=== PATIENT | female | born 1955 | race Caucasian/White ===

== ENCOUNTER 2017-03-30 11:33 | Inpatient (IN) | payer OTHER ==
[~2017-03-30] VITALS: Ht 154.9 cm; Wt 46.0 kg
[2017-03-30] MEDS ORDERED: NS 1,000 ML IV SCH (11:43)
[2017-03-30 12:04] LABS: BASO % 0.2 % (0.0-1.0); EOS # 0.2 K/mm3 (0.0-0.50); LARGE UNSTAINED CELL # 0.1 K/mm3 (0.0-0.4); LARGE UNSTAINED CELL % 0.4 % (0.0-4.0); LYMPH # 0.9 K/mm3 (1.5-4.5); LYMPH % 5.3 % (24.0-44.0); MEAN CORPUSCULAR HEMOGLOBIN 31.4 pg (27.0-33.0); MEAN CORPUSCULAR HGB CONC 33.3 g/dl (32.0-36.5); MEAN CORPUSCULAR VOLUME 94.3 fl (80.0-96.0); MONO # 0.5 K/mm3 (0.0-0.8); MONO % 3.3 % (0.0-5.0); NEUTROPHILS # 14.4 K/mm3 (1.8-7.7); NEUTROPHILS % 89.9 % (36.0-66.0); PLATELET COUNT, AUTOMATED 226 k/mm3 (150-450); RED CELL DISTRIBUTION WIDTH 12.9 % (11.5-14.5)
[2017-03-30 12:18] LABS: ALBUMIN 3.8 GM/DL (3.2-5.2); ALBUMIN/GLOBULIN RATIO 0.93 (1.00-1.93); ALKALINE PHOSPHATASE 62 U/L (45-117); ALT/SGPT 12 U/L (12-78); ANION GAP 10 MEQ/L (8-16); AST/SGOT 10 U/L (15-37); BILIRUBIN,DIRECT 0.2 MG/DL (0.0-0.2); BILIRUBIN,TOTAL 0.9 MG/DL (0.2-1.0); BLOOD UREA NITROGEN 15 MG/DL (7-18); CALCIUM LEVEL 8.8 MG/DL (8.8-10.2); CARBON DIOXIDE LEVEL 24 MEQ/L (21-32); CHLORIDE LEVEL 106 MEQ/L (98-107); CREATININE FOR GFR 0.78 MG/DL (0.55-1.02); GLOMERULAR FILTRATION RATE > 60.0 (>45); GLUCOSE, FASTING 115 MG/DL (80-110); POTASSIUM SERUM 3.4 MEQ/L (3.5-5.1); SODIUM LEVEL 140 MEQ/L (136-145); TOTAL PROTEIN 7.9 GM/DL (6.4-8.2)
[2017-03-30] MEDS ORDERED: ISOVUE-370 76% 100ML VIAL (Q9967) As Ordered ONE (12:28)
[2017-03-30] MEDS ORDERED: SODIUM CHLORIDE 0.9% 1000 ML IV ONE (13:00)
[2017-03-30] MEDS ORDERED: PIPERACILLIN/TAZOBACTAM SOD 3.375 GM in D5W MINI-BAG PLUS 50 ML IV ONE (13:00)
--- NOTE | 2017-03-30 13:21 | REP ---
CT ABDOMEN AND PELVIS WITH CONTRAST: TECHNIQUE: Axial contrast enhanced images from the lung bases to the pubic symphysis using 100 mL Isovue 370 intravenous contrast material with multiplanar reformations. No infiltrate is seen in the visualized lung bases. The liver demonstrates hypodense nodules of varying sizes. Two dominant cysts are seen, one in the right lobe measuring 2.5 cm in diameter and one in the left lobe approximately 2.2 cm in diameter. Other tiny subcentimeter hypodensities do not appear to enhance also compatible with cysts. There is an enhancing nodule in the left lobe superiorly which appears to represent a hemangioma measuring about 8 mm in diameter. The spleen, adrenals, and pancreas as well as the kidneys are unremarkable. There is no hydronephrosis. There is no abdominal aortic aneurysm. I see no definite adenopathy. The appendix appears dilated in the lower anterior pelvis with surrounding streaky inflammatory change consistent with appendicitis. There is mild free fluid in the pelvis. The urinary bladder is mildly distended and grossly unremarkable. I see no other significant finding. There appears to be mild inferior pericardial fluid. IMPRESSION: Findings compatible with appendicitis with mild free fluid in the pelvis. No free air. Signed by Jesus Maravilla MD 03/30/2017 04:47 P
[2017-03-30] MEDS ORDERED: ONDANSETRON 4MG/2ML VIAL (J2405) IV ONE (13:30)
[2017-03-30] MEDS ORDERED: BUPIVACAINE HCL 0.25% 30 ML VIAL As Ordered ONE (14:12)
[2017-03-30] MEDS ORDERED: LR 1,000 ML IV SCH ×2 (15:31→21:45)
[2017-03-30] MEDS ORDERED: MIDAZOLAM INJ 2 MG/2 ML VIAL (J2250) As Ordered ONE (18:47)
[2017-03-30] MEDS ORDERED: fentaNYL 100 MCG/2 ML INJECTION (J3010) As Ordered ONE ×2 (18:47→21:36)
[2017-03-30] MEDS ORDERED: PROPOFOL 200 MG/20 ML VIAL As Ordered ONE (18:48)
[2017-03-30] MEDS ORDERED: LIDOCAINE 2% INJ 100 MG/5 ML SDV (FOR ANES.) As Ordered ONE (18:48)
[2017-03-30] MEDS: PIPERACILLIN/TAZOBACTAM SOD 3.375 GM in D5W MINI-BAG PLUS 50 ML IV SCH (19:00)
[2017-03-30] MEDS ORDERED: dexameTHASONE 4 MG/ML 1ML VIAL (J1100) As Ordered ONE (19:32)
[2017-03-30] MEDS ORDERED: ONDANSETRON 4MG/2ML VIAL (J2405) As Ordered ONE (19:32)
[2017-03-30] MEDS ORDERED: ROCURONIUM BROMIDE 50 MG/5 ML VIAL As Ordered ONE (19:33)
[2017-03-30] MEDS ORDERED: GLYCOPYRROLATE INJ 0.2 MG/ML 2 ML VIAL As Ordered ONE (20:25)
[2017-03-30] MEDS ORDERED: NEOSTIGMINE 1MG/ML 5 ML SYRINGE (J2710) As Ordered ONE (20:25)
[2017-03-30] MEDS ORDERED: KETOROLAC 60 MG/2 ML VIAL (J1885) As Ordered ONE (20:35)
[2017-03-30] MEDS ORDERED: ONDANSETRON 4MG/2ML VIAL (J2405) IV PRN (21:45)
[2017-03-30] MEDS ORDERED: fentaNYL 100 MCG/2 ML INJECTION (J3010) IV PRN (21:45)
[2017-03-30] MEDS ORDERED: MORPHINE 2 MG/ML 1ML SYRINGE IV PRN (22:00)
[2017-03-30 22:15] VITALS: BP 97/52
[2017-03-30 22:45] VITALS: BP 97/53
[2017-03-30 23:15] VITALS: BP 112/61
[2017-03-30] MEDS: LR 1,000 ML IV SCH (23:33)
[2017-03-31] VITALS (8 sets, daily range): BP systolic 98–105; BP diastolic 52–59
[2017-03-31] MEDS: PIPERACILLIN/TAZOBACTAM SOD 3.375 GM in D5W MINI-BAG PLUS 50 ML IV SCH ×4 (00:45→18:24)
[2017-03-31] MEDS: KETOROLAC 30 MG/ML VIAL (J1885) IV PRN ×3 (00:46→13:46)
[2017-03-31] MEDS: LR 1,000 ML IV SCH (06:44)
[2017-03-31 07:12] LABS: BASO % 0.1 % (0.0-1.0); EOS % 0.1 % (0.0-3.0); LARGE UNSTAINED CELL # 0.1 K/mm3 (0.0-0.4); LARGE UNSTAINED CELL % 0.7 % (0.0-4.0); LYMPH # 0.5 K/mm3 (1.5-4.5); LYMPH % 4.6 % (24.0-44.0); MEAN CORPUSCULAR HGB CONC 32.4 g/dl (32.0-36.5); MEAN CORPUSCULAR VOLUME 98.7 fl (80.0-96.0); MONO # 0.3 K/mm3 (0.0-0.8); MONO % 3.2 % (0.0-5.0); NEUTROPHILS # 9.5 K/mm3 (1.8-7.7); NEUTROPHILS % 91.3 % (36.0-66.0); PLATELET COUNT, AUTOMATED 182 k/mm3 (150-450); WHITE BLOOD COUNT 10.4 K/mm3 (4.0-10.0)
[2017-04-01] MEDS: LR 1,000 ML IV SCH ×2 (00:38→17:05)
[2017-04-01] MEDS: PIPERACILLIN/TAZOBACTAM SOD 3.375 GM in D5W MINI-BAG PLUS 50 ML IV SCH ×4 (00:38→18:45)
[2017-04-01] MEDS: KETOROLAC 30 MG/ML VIAL (J1885) IV PRN ×4 (00:57→20:17)
[2017-04-01 02:00] VITALS: BP 111/57
[2017-04-01 05:16] LABS: BASO % 0.4 % (0.0-1.0); EOS % 0.5 % (0.0-3.0); LARGE UNSTAINED CELL % 0.5 % (0.0-4.0); LYMPH # 0.8 K/mm3 (1.5-4.5); LYMPH % 8.4 % (24.0-44.0); MEAN CORPUSCULAR HEMOGLOBIN 31.7 pg (27.0-33.0); MEAN CORPUSCULAR HGB CONC 33.1 g/dl (32.0-36.5); MEAN CORPUSCULAR VOLUME 95.7 fl (80.0-96.0); MONO # 0.2 K/mm3 (0.0-0.8); MONO % 2.2 % (0.0-5.0); NEUTROPHILS # 8.4 K/mm3 (1.8-7.7); NEUTROPHILS % 88.1 % (36.0-66.0); PLATELET COUNT, AUTOMATED 170 k/mm3 (150-450); RED CELL DISTRIBUTION WIDTH 12.8 % (11.5-14.5); WHITE BLOOD COUNT 9.6 K/mm3 (4.0-10.0)
[2017-04-01 05:30] VITALS: BP 109/59
[2017-04-01 05:52] LABS: ALBUMIN 2.2 GM/DL (3.2-5.2); ALBUMIN/GLOBULIN RATIO 0.61 (1.00-1.93); ALKALINE PHOSPHATASE 35 U/L (45-117); ALT/SGPT 8 U/L (12-78); ANION GAP 10 MEQ/L (8-16); AST/SGOT 11 U/L (15-37); BILIRUBIN,TOTAL 0.8 MG/DL (0.2-1.0); BLOOD UREA NITROGEN 22 MG/DL (7-18); CALCIUM LEVEL 7.7 MG/DL (8.8-10.2); CARBON DIOXIDE LEVEL 23 MEQ/L (21-32); CHLORIDE LEVEL 109 MEQ/L (98-107); CREATININE FOR GFR 0.74 MG/DL (0.55-1.02); GLOMERULAR FILTRATION RATE > 60.0 (>45); GLUCOSE, FASTING 78 MG/DL (80-110); POTASSIUM SERUM 3.4 MEQ/L (3.5-5.1); SODIUM LEVEL 142 MEQ/L (136-145); TOTAL PROTEIN 5.8 GM/DL (6.4-8.2)
[2017-04-01 10:00] VITALS: BP 107/57
[2017-04-01 14:00] VITALS: BP 122/66
--- NOTE | 2017-04-01 15:11 | RO ---
DATE OF PROCEDURE: 03/30/2017 PREOPERATIVE DIAGNOSIS: Appendicitis, possibly perforated. POSTOPERATIVE DIAGNOSIS: Perforated gangrenous appendicitis. PROCEDURE PERFORMED: Laparoscopic appendectomy. SURGEON: Dr. Lugo ANESTHESIA: General. INDICATIONS FOR PROCEDURE: Patient is a 61-year-old woman who presented to the emergency department with a roughly 24-hour history of abdominal pain, which became more localized to the right lower quadrant. The patient was found to have right lower quadrant tenderness and a CT scan suggested a dilated, inflamed appendix with some free fluid in the pelvis. The patient was started on antibiotics and is now for a laparoscopic appendectomy. OPERATIVE PROCEDURE: The patient was placed supine on the operating table. She was placed under general endotracheal anesthesia. The patient's abdomen was noted to be moderately distended. 0.25% Marcaine was infiltrated at each of the trocar sites. A short supraumbilical midline incision was made and deepened through the fascia and peritoneum under direct vision. A Jaz cannula was inserted and the abdomen was insufflated with carbon dioxide gas. The laparoscope was placed. Initial examination showed some yellowish fluid lower in the abdomen. There was some clearly inflamed tissue in the right lower quadrant with some inflammation of the peritoneum in this area and a few filmy adhesions and some debris. There was omentum pulled down into the low right lower quadrant. A 5 mm trocar was placed low in the midline and a second 5 mm trocar in the left lower quadrant. Graspers were inserted. The omentum was peeled away from a markedly inflamed appendix. It was obvious that there was some leakage of fecal material from perforations on the side of the appendix. The omentum was placed up into the mid abdomen. The right lower quadrant and pelvis were irrigated with some saline. A few small fragments of what appeared to be stool in the area of the appendix were suctioned and irrigated as thoroughly as possible. There was some exudate noted on a surrounding loop of bowel and this was removed with graspers as thoroughly as possible. Attention was then turned to the appendix. The mesoappendix was grasped and the appendix was elevated. The mesoappendix was divided near the base of the appendix using the cautery with care to ensure hemostasis. The very base of the appendix appeared viable and an acceptable location for division. Once the appendix had been freed, the base of the appendix at its juncture with the cecum was stapled with a linear cutter 45 stapler with a blue load. The appendix was placed in an Endopouch. The appendiceal closure looked good with no bleeding. A thorough irrigation of the abdomen was then performed. Initially, I washed out the right lower quadrant and the pelvis as thoroughly as possible using sterile saline. The patient was then tilted to a reverse Trendelenburg position and the upper quadrants were irrigated and the irrigation allowed to drain into the pelvis where it was all aspirated as thoroughly as possible. The patient was then flattened out to complete the removal of irrigation from the pelvis and lower abdomen. The patient's abdomen was then deflated and the trocars were removed. The appendix was recovered through the Jaz site. This was sent for permanent pathology. The fascia at the Jaz site was closed with interrupted simple sutures of #2-0 Vicryl. The skin incisions were all closed with #5-0 Vicryl and Steri-Strips. Light dressings were applied. The patient tolerated the procedure well without apparent complication. She was awakened in the operating room, extubated and moved to the recovery room in stable condition. PRITI
[2017-04-01 18:00] VITALS: BP 116/68
[2017-04-01 22:00] VITALS: BP 103/59
[2017-04-02] MEDS: PIPERACILLIN/TAZOBACTAM SOD 3.375 GM in D5W MINI-BAG PLUS 50 ML IV SCH ×4 (00:49→18:22)
[2017-04-02] MEDS: ONDANSETRON 4MG/2ML VIAL (J2405) IV PRN (00:57)
[2017-04-02 02:00] VITALS: BP 110/68
[2017-04-02 06:00] VITALS: BP 124/66
[2017-04-02] MEDS: LR 1,000 ML IV SCH ×2 (06:18→12:37)
[2017-04-02 10:00] VITALS: BP 113/61
[2017-04-02] MEDS: KETOROLAC 30 MG/ML VIAL (J1885) IV PRN ×2 (10:58→18:21)
[2017-04-02] MEDS ORDERED: ERTAPENEM SODIUM 1 GM in NS MINI-BAG PLUS 50 ML IV SCH (13:00)
[2017-04-02 14:00] VITALS: BP 107/55
[2017-04-02] MEDS: ERTAPENEM SODIUM 1 GM in NS MINI-BAG PLUS 50 ML IV SCH (14:59)
[2017-04-02 18:00] VITALS: BP 109/53
[2017-04-02 22:00] VITALS: BP 111/58
[2017-04-03] MEDS: PIPERACILLIN/TAZOBACTAM SOD 3.375 GM in D5W MINI-BAG PLUS 50 ML IV SCH ×4 (00:20→18:26)
[2017-04-03] MEDS: LR 1,000 ML IV SCH ×2 (00:21→20:08)
[2017-04-03 02:00] VITALS: BP 116/62
[2017-04-03 05:44] LABS: MEAN CORPUSCULAR HGB CONC 32.5 g/dl (32.0-36.5); MEAN CORPUSCULAR VOLUME 95.3 fl (80.0-96.0); RED CELL DISTRIBUTION WIDTH 12.6 % (11.5-14.5)
[2017-04-03 06:00] VITALS: BP 120/58
--- NOTE | 2017-04-03 07:50 | REPUSA ---
TECHNIQUE: CT of the abdomen and pelvis was performed without contrast utilizing a standard protocol. 2-D sagittal and coronal reformatted images were also performed. HISTORY: POST FEVER/APPY ? ABSCESS COMPARISON: Contrast-enhanced exam dated 03/30/2017. FINDINGS: The lower thorax is grossly unremarkable as seen. There is some trace pleural fluid in the lung bases . Evaluation of the abdomen and pelvis demonstrates a nasogastric tube coursing through the esophagus a nd nicely through the stomach and into the first portion of the duodenum. There is a small cyst in the lateral periphery of the lateral segment of the left lobe of the liver m easuring 2.3 x 1.5 cm and another small cyst measuring about 2.5 x 2.2 cm is noted in the middle of t he right lobe of the liver. There is vicarious excretion of contrast noted in the gallbladder. Incidental finding. The patient is status post appendectomy. There is no abscess or abnormal fluid collection. There is a mild diffuse small bowel ileus. The bowel loops and mesentery and the internal organs and this exam is otherwise unremarkable within the limits of a noncontrast exam. IMPRESSION: 1. The patient is status post appendectomy and this exam is grossly unremarkable within the limits of a noncontrast exam. 2. There is a mild diffuse small bowel ileus. 3. There is trace pleural fluid in the lung bases and a nasogastric tube is in good position and vica rious excretion of contrast is noted in the gallbladder. Follow up with an exam with intravenous and oral contrast is suggested if clinically necessary. Thank you for this referral and allowing us to care for your patient.
[2017-04-03] MEDS: KETOROLAC 30 MG/ML VIAL (J1885) IV PRN (08:58)
[2017-04-03] MEDS ORDERED: CHLORASEPTIC SPRAY MT PRN (11:00)
[2017-04-03] MEDS ORDERED: CEPACOL LOZENGE PO PRN (11:00)
[2017-04-03 14:00] VITALS: BP 128/62
[2017-04-03] MEDS: ERTAPENEM SODIUM 1 GM in NS MINI-BAG PLUS 50 ML IV SCH (14:30)
[2017-04-03 18:00] VITALS: BP 128/64
[2017-04-03 22:00] VITALS: BP 128/60
[2017-04-04] MEDS: PIPERACILLIN/TAZOBACTAM SOD 3.375 GM in D5W MINI-BAG PLUS 50 ML IV SCH ×2 (00:11→06:14)
[2017-04-04] MEDS: KETOROLAC 30 MG/ML VIAL (J1885) IV PRN ×3 (01:44→18:17)
[2017-04-04 02:00] VITALS: BP 102/56
[2017-04-04] MEDS: ONDANSETRON 4MG/2ML VIAL (J2405) IV PRN (02:11)
[2017-04-04 05:36] VITALS: BP 127/65
[2017-04-04] MEDS: D5W/LR 1,000 ML IV SCH (09:07)
[2017-04-04 09:41] LABS: BASO # 0.1 K/mm3 (0.0-0.2); BASO % 1.1 % (0.0-1.0); EOS # 0.2 K/mm3 (0.0-0.50); EOS % 2.9 % (0.0-3.0); LARGE UNSTAINED CELL # 0.1 K/mm3 (0.0-0.4); LARGE UNSTAINED CELL % 1.6 % (0.0-4.0); LYMPH # 0.8 K/mm3 (1.5-4.5); LYMPH % 10.4 % (24.0-44.0); MEAN CORPUSCULAR HEMOGLOBIN 31.4 pg (27.0-33.0); MEAN CORPUSCULAR HGB CONC 33.3 g/dl (32.0-36.5); MEAN CORPUSCULAR VOLUME 94.2 fl (80.0-96.0); MONO # 0.4 K/mm3 (0.0-0.8); MONO % 5.2 % (0.0-5.0); NEUTROPHILS # 5.5 K/mm3 (1.8-7.7); NEUTROPHILS % 78.8 % (36.0-66.0); PLATELET COUNT, AUTOMATED 285 k/mm3 (150-450); RED CELL DISTRIBUTION WIDTH 12.7 % (11.5-14.5)
[2017-04-04 10:00] VITALS: BP 145/60
[2017-04-04 10:13] LABS: ANION GAP 9 MEQ/L (8-16); BLOOD UREA NITROGEN 26 MG/DL (7-18); CALCIUM LEVEL 7.7 MG/DL (8.8-10.2); CARBON DIOXIDE LEVEL 29 MEQ/L (21-32); CHLORIDE LEVEL 108 MEQ/L (98-107); CREATININE FOR GFR 0.64 MG/DL (0.55-1.02); GLOMERULAR FILTRATION RATE > 60.0 (>45); GLUCOSE, FASTING 79 MG/DL (80-110); POTASSIUM SERUM 3.5 MEQ/L (3.5-5.1); SODIUM LEVEL 146 MEQ/L (136-145)
[2017-04-04] MEDS: LR 1,000 ML IV SCH (10:38)
[2017-04-04 14:00] VITALS: BP 131/62
[2017-04-04] MEDS: ERTAPENEM SODIUM 1 GM in NS MINI-BAG PLUS 50 ML IV SCH (15:26)
[2017-04-04 18:00] VITALS: BP 136/76
[2017-04-04 22:00] VITALS: BP 134/70
[2017-04-05] MEDS: D5W/LR 1,000 ML IV SCH ×2 (00:01→14:37)
[2017-04-05 06:00] VITALS: BP 112/55
[2017-04-05 10:00] VITALS: BP 143/71
[2017-04-05 14:00] VITALS: BP 133/67
[2017-04-05] MEDS: ERTAPENEM SODIUM 1 GM in NS MINI-BAG PLUS 50 ML IV SCH (14:36)
--- NOTE | 2017-04-05 15:49 | REP ---
KUB: Single view. History: Evaluate gas pattern. Comparison is made with CT study from April 03, 2017. Findings: A nasogastric tube is seen in the body of the stomach. The bowel gas pattern is much improved. There are one or two loops of air-filled but nondilated small bowel in the central abdomen. Air is seen in the proximal and distal colon. Impression: Bowel gas pattern much improved. NG tube in the mid stomach. Signed by Pj Izquierdo MD 04/05/2017 04:40 P
[2017-04-05 17:55] VITALS: BP 122/68
[2017-04-05] MEDS: ACETAMINOPHEN TAB 650MG DOSE (2X325MG) PO PRN (20:00)
[2017-04-05 22:00] VITALS: BP 120/68
[2017-04-06] VITALS (7 sets, daily range): BP systolic 107–145; BP diastolic 58–67
[2017-04-06] MEDS: D5W/LR 1,000 ML IV SCH (04:55)
[2017-04-06] MEDS ORDERED: ISOVUE-370 76% 100ML VIAL (Q9967) As Ordered ONE (08:51)
[2017-04-06 10:11] LABS: BASO % 0.3 % (0.0-1.0); EOS # 0.3 K/mm3 (0.0-0.50); EOS % 4.1 % (0.0-3.0); LARGE UNSTAINED CELL # 0.1 K/mm3 (0.0-0.4); LARGE UNSTAINED CELL % 1.1 % (0.0-4.0); LYMPH # 1.6 K/mm3 (1.5-4.5); LYMPH % 20.1 % (24.0-44.0); MEAN CORPUSCULAR VOLUME 96.9 fl (80.0-96.0); MONO # 0.3 K/mm3 (0.0-0.8); NEUTROPHILS # 5.5 K/mm3 (1.8-7.7); NEUTROPHILS % 70.3 % (36.0-66.0); PLATELET COUNT, AUTOMATED 371 k/mm3 (150-450); RED CELL DISTRIBUTION WIDTH 12.9 % (11.5-14.5); WHITE BLOOD COUNT 7.8 K/mm3 (4.0-10.0)
[2017-04-06 10:22] LABS: ANION GAP 6 MEQ/L (8-16); BLOOD UREA NITROGEN 9 MG/DL (7-18); CALCIUM LEVEL 7.8 MG/DL (8.8-10.2); CARBON DIOXIDE LEVEL 31 MEQ/L (21-32); CHLORIDE LEVEL 104 MEQ/L (98-107); CREATININE FOR GFR 0.54 MG/DL (0.55-1.02); GLOMERULAR FILTRATION RATE > 60.0 (>45); GLUCOSE, FASTING 104 MG/DL (80-110); POTASSIUM SERUM 3.1 MEQ/L (3.5-5.1); SODIUM LEVEL 141 MEQ/L (136-145)
--- NOTE | 2017-04-06 12:05 | REP ---
CT abdomen and pelvis with IV but without oral contrast: History: Perforated gangrenous appendicitis. Status post laparoscopic appendectomy. Comparison study April 03, 2017. March 30, 2017 CT study is also reviewed. CT contrast dose: 100 ml of Isovue 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 Mild ileus pattern again seen. The lung bases are essentially clear. There is a small quantity of pleural fluid bilaterally again noted. Hepatic cysts are again seen as on the preoperative study. The gallbladder is partially collapsed. There is minimal ascites in the upper abdomen about the liver and in the pericolic gutters bilaterally. There is ascitic fluid in the cul-de-sac in the pelvis. This is increased when compared with the most recent prior study of April 03, 2017. Fluid collection in the cul-de-sac has a partially enhancing wall. The dimensions of the fluid collection are 8.9 x 4.7 x 2.8 cm. There is some interloop ascites in the lower abdomen above the bladder as well. There are clips medial to the cecum. There is no evidence of free intraperitoneal air. No abdominal wall defect is observed. Pancreas, spleen, kidneys and liver are intact and otherwise unremarkable. Impression: Persistent although improved ileus pattern in the bowel gas. Mild ascites. Cul-de-sac fluid collection has partially enhancing wall which could reflect early abscess formation. Signed by Pj Izquierdo MD 04/06/2017 04:33 P
[2017-04-06] MEDS ORDERED: FAT EMULSION IV 20% 500 ML IV SCH (18:00)
[2017-04-06] MEDS ORDERED: MULTIVITAMIN -ADULT INJECTION 10 ML, CR/CU/SE/MN/ZN INJ 1 ML in AMINO AC/ELECTROLYTE/DE... IV SCH (18:00)
[2017-04-06] MEDS: ERTAPENEM SODIUM 1 GM in NS MINI-BAG PLUS 50 ML IV SCH (18:00)
[2017-04-06] MEDS: ENOXAPARIN 40 MG/0.4 ML SYRINGE (J1650) SC SCH (18:52)
[2017-04-07] MEDS: ACETAMINOPHEN TAB 650MG DOSE (2X325MG) PO PRN ×4 (00:15→22:25)
[2017-04-07 02:00] VITALS: BP 116/62
[2017-04-07 05:24] VITALS: BP 107/55
[2017-04-07] MEDS: SODIUM CHLORIDE 0.9% INJ 10 ML SYR IV SCH ×2 (06:08→16:43)
[2017-04-07 10:57] LABS: ALBUMIN 2.3 GM/DL (3.2-5.2); ALBUMIN/GLOBULIN RATIO 0.72 (1.00-1.93); ALKALINE PHOSPHATASE 41 U/L (45-117); ALT/SGPT 17 U/L (12-78); ANION GAP 7 MEQ/L (8-16); AST/SGOT 22 U/L (15-37); BILIRUBIN,TOTAL 0.2 MG/DL (0.2-1.0); BLOOD UREA NITROGEN 11 MG/DL (7-18); CALCIUM LEVEL 7.8 MG/DL (8.8-10.2); CARBON DIOXIDE LEVEL 31 MEQ/L (21-32); CHLORIDE LEVEL 105 MEQ/L (98-107); CREATININE FOR GFR 0.49 MG/DL (0.55-1.02); GLOMERULAR FILTRATION RATE > 60.0 (>45); GLUCOSE, FASTING 104 MG/DL (80-110); POTASSIUM SERUM 3.5 MEQ/L (3.5-5.1); SODIUM LEVEL 143 MEQ/L (136-145); TOTAL PROTEIN 5.5 GM/DL (6.4-8.2)
[2017-04-07] MEDS ORDERED: LIDOCAINE 1% MDV 20ML VIAL As Ordered ONE (12:48)
[2017-04-07 14:00] VITALS: BP 113/62
[2017-04-07] MEDS: SODIUM CHLORIDE 0.9% INJ 10 ML SYR IV PRN (15:53)
[2017-04-07] MEDS: ERTAPENEM SODIUM 1 GM in NS MINI-BAG PLUS 50 ML IV SCH (15:54)
--- NOTE | 2017-04-07 17:49 | REP ---
CT GUIDED ABSCESS DRAIN: The procedure was performed under the direct supervision of Dr. Maravilla. The patient has a history of a cul-de-sac fluid collection seen on a previous CAT scan dated 04/06/2017. The risks and benefits of the procedure were explained to the patient and informed consent was obtained. The pelvic fluid collection was localized using CT guidance. The skin was prepped and draped in a sterile fashion. 1% lidocaine was used as a local anesthetic. Using CT guidance an 8-[place] APDL catheter was inserted using trocar technique. 50 mL of clear yellow fluid was withdrawn and sent to the lab. The catheter was affixed to the skin and a sterile dressing was applied. The catheter was connected to a gravity drainage bag. The patient tolerated the procedure well and there were no immediate complications. Reviewed by JULES Olivares 04/08/2017 04:55 PEdited and Signed by Jesus Maravilla MD 04/08/2017 07:53 P
[2017-04-07 18:00] VITALS: BP 106/56
[2017-04-07] MEDS ORDERED: FAT EMULSION IV 20% 500 ML IV SCH (18:00)
[2017-04-07] MEDS ORDERED: AMINO AC/ELECTROLYTE/DEX/CALC 2,000 ML IV SCH (18:00)
[2017-04-07] MEDS: ENOXAPARIN 40 MG/0.4 ML SYRINGE (J1650) SC SCH (18:45)
[2017-04-07] MEDS: HumaLOG INSULIN (NovoLOG) PER UNIT SC SCH ×2 (18:46→23:49)
[2017-04-07 22:00] VITALS: BP 107/58
[2017-04-08 02:00] VITALS: BP 101/54
[2017-04-08] MEDS: ACETAMINOPHEN TAB 650MG DOSE (2X325MG) PO PRN ×4 (04:20→18:12)
[2017-04-08] MEDS: SODIUM CHLORIDE 0.9% INJ 10 ML SYR IV SCH ×3 (05:08→22:00)
[2017-04-08 05:38] LABS: BASO % 0.3 % (0.0-1.0); EOS # 0.4 K/mm3 (0.0-0.50); EOS % 5.5 % (0.0-3.0); LARGE UNSTAINED CELL # 0.1 K/mm3 (0.0-0.4); LARGE UNSTAINED CELL % 1.4 % (0.0-4.0); LYMPH # 1.8 K/mm3 (1.5-4.5); LYMPH % 20.7 % (24.0-44.0); MEAN CORPUSCULAR HEMOGLOBIN 31.1 pg (27.0-33.0); MEAN CORPUSCULAR HGB CONC 33.1 g/dl (32.0-36.5); MONO # 0.3 K/mm3 (0.0-0.8); MONO % 3.8 % (0.0-5.0); NEUTROPHILS # 5.5 K/mm3 (1.8-7.7); NEUTROPHILS % 68.4 % (36.0-66.0); PLATELET COUNT, AUTOMATED 371 k/mm3 (150-450)
[2017-04-08 05:46] LABS: ANION GAP 5 MEQ/L (8-16); BLOOD UREA NITROGEN 12 MG/DL (7-18); CALCIUM LEVEL 7.8 MG/DL (8.8-10.2); CARBON DIOXIDE LEVEL 31 MEQ/L (21-32); CHLORIDE LEVEL 107 MEQ/L (98-107); CREATININE FOR GFR 0.48 MG/DL (0.55-1.02); GLOMERULAR FILTRATION RATE > 60.0 (>45); GLUCOSE, FASTING 92 MG/DL (80-110); POTASSIUM SERUM 3.2 MEQ/L (3.5-5.1); SODIUM LEVEL 143 MEQ/L (136-145)
[2017-04-08 06:00] VITALS: BP 100/60
[2017-04-08] MEDS: HumaLOG INSULIN (NovoLOG) PER UNIT SC SCH ×3 (06:00→17:39)
[2017-04-08 10:00] VITALS: BP 122/64
[2017-04-08 14:00] VITALS: BP 102/58
[2017-04-08] MEDS: KCL 10MEQ IN 100ML SWI (KRUN) 10 MEQ in APPROPRIATE DILUENT 1 EA IV SCH ×8 (14:27→20:45)
[2017-04-08] MEDS: ENOXAPARIN 40 MG/0.4 ML SYRINGE (J1650) SC SCH (17:19)
[2017-04-08] MEDS: ERTAPENEM SODIUM 1 GM in NS MINI-BAG PLUS 50 ML IV SCH (17:19)
[2017-04-08 18:00] VITALS: BP 102/64
[2017-04-08] MEDS ORDERED: AMINO AC/ELECTROLYTE/DEX/CALC 2,000 ML IV SCH (18:00)
[2017-04-08] MEDS ORDERED: FAT EMULSION IV 20% 500 ML IV SCH (18:00)
--- NOTE | 2017-04-08 20:01 | REP ---
Procedure: PICC line insertion with Chemo-Ritilene The procedure was performed under the direct supervision of Dr. Maravilla. The risks and benefits of the procedure were explained to the patient and informed consent was obtained. The right basilic vein vein was localized using ultrasound guidance. The skin was prepped and draped in a sterile fashion. 2% lidocaine was used as a local anesthetic. Using ultrasound guidance the basilic vein was cannulated and a 0.018 guidewire was inserted and advanced to the SVC using fluoroscopic guidance. The needle was removed and a 5.5 [place] dilator and peel-away sheath was inserted over the guide wire. A 5.5 [place] dual lumen catheter was cut to length of 38 cm. The dilator was removed and the catheter was inserted over the guide wire with the tip ending in the SVC. The peel-away sheath was removed and the catheter was flushed with heparinized saline as per Hospital protocol. The catheter was affixed to the skin and a sterile dressing was applied. The the patient tolerated the procedure well and there were no immediate complications. 0.2 minutes of fluoro time was utilized for this procedure. Reviewed by JULES Olivares 04/07/2017 04:49 PSigned by Jesus Maravilla MD 04/08/2017 07:52 P
[2017-04-08 20:55] VITALS: BP 110/53
[2017-04-09 02:00] VITALS: BP 109/59
[2017-04-09 06:00] VITALS: BP 102/54
[2017-04-09] MEDS: HumaLOG INSULIN (NovoLOG) PER UNIT SC SCH ×4 (06:12→18:58)
[2017-04-09] MEDS: KETOROLAC 30 MG/ML VIAL (J1885) IV PRN ×2 (06:14→17:34)
[2017-04-09] MEDS: SODIUM CHLORIDE 0.9% INJ 10 ML SYR IV PRN (06:15)
[2017-04-09 10:47] LABS: ANION GAP 7 MEQ/L (8-16); BLOOD UREA NITROGEN 14 MG/DL (7-18); CARBON DIOXIDE LEVEL 28 MEQ/L (21-32); CHLORIDE LEVEL 108 MEQ/L (98-107); CREATININE FOR GFR 0.56 MG/DL (0.55-1.02); GLOMERULAR FILTRATION RATE > 60.0 (>45); GLUCOSE, FASTING 100 MG/DL (80-110); POTASSIUM SERUM 4.2 MEQ/L (3.5-5.1); SODIUM LEVEL 143 MEQ/L (136-145)
--- NOTE | 2017-04-09 12:54 | IPNPDOC ---
Subjective General Date/Time Seen The patient was seen on 04/09/17 at 12:47. Subject Chief Complaint/History The patient is a 61-year-old female admitted with a reason for visit of Appendicitis. prolonged ileus Reports some cramping overnight. Minimal, occasional flatus, small loose stools intermittently. Denies nausea. Shes on clear but not taking much because shes afraid she will need the ngt placed back. Current Medications Current Medications Current Medications Acetaminophen (Tylenol Tab) 650 mg Q4HP PRN PO MILD PAIN or TEMP > 100.5 Last administered on 04/08/17 18:12; Start 03/30/17 at 22:00; Stop 04/29/17 at 21:59 Amino Ac/Electrol/ Dextrose/Calcium 2,000 ml @ 60 mls/hr 1T@18 IV Last administered on 04/07/17 18:45; Start 04/07/17 at 18:00; Stop 04/08/17 at 17:59 ; Status DC Amino Ac/Electrol/ Dextrose/Calcium 2,000 ml @ 60 mls/hr 1T@18 IV Last administered on 04/08/17 17:20; Start 04/08/17 at 18:00; Stop 04/09/17 at 17:59 Amino Ac/Electrol/ Dextrose/Calcium 2,000 ml @ 60 mls/hr 1T@18 IV ; Start 04/09 at 18:00; Stop 04/10/17 at 17:59 Cetylpyridinium Chloride (Cepacol) 1 tree Q2HP PRN PO COUGH; Start 04/03/17 at 11 :00; Stop 05/03/17 at 10:59 Dextrose/Lactated Ringer's 1,000 ml @ 65 mls/hr [id number] IV Last administered on 04/06/17 04:55; Start 04/04/17 at 09:00; Stop 04/06/17 at 18:15; Status DC Enoxaparin Sodium (Lovenox) 40 mg DAILY@1800 SC Last administered on 04/08/17 17:19; Start 04/06/17 at 18:00; Stop 04/11/17 at 17:59 Ertapenem 1 gm/ Sodium Chloride 50 ml @ 100 mls/hr Q24H IV ; Start 04/02/17 at 13:00; Stop 04/02/17 at 13:55; Status DC Ertapenem 1 gm/ Sodium Chloride 50 ml @ 100 mls/hr Q24H IV Last administered on 04/08/17 17:19; Start 04/02/17 at 15:00; Stop 04/15/17 at 14:59 Fat Emulsion Intravenous 500 ml @ 20 mls/hr 1T@18 IV Last administered on 04/06 18:30; Start 04/06/17 at 18:00; Stop 04/07/17 at 17:59; Status DC Fat Emulsion Intravenous 500 ml @ 20 mls/hr 1T@18 IV Last administered on 04/07 18:44; Start 04/07/17 at 18:00; Stop 04/08/17 at 17:59; Status DC Fat Emulsion Intravenous 500 ml @ 20 mls/hr 1T@18 IV Last administered on 04/08 17:20; Start 04/08/17 at 18:00; Stop 04/09/17 at 17:59 Fat Emulsion Intravenous 500 ml @ 20 mls/hr 1T@18 IV ; Start 04/09/17 at 18:00 ; Stop 04/10/17 at 17:59 Fentanyl Citrate (Sublimaze) 25 mcg Q5MP PRN IV MODERATE PAIN (PS 4-7) Last administered on 03/30/17 21:40; Start 03/30/17 at 21:45; Stop 03/30/17 at 22:45; Status DC Heparin Sodium (Heparin (Flush)) 200 units ASDIRECTED PRN IV SEE LABEL COMMENTS Last administered on 04/09/17 06:14; Start 04/06/17 at 18:15; Stop 05/06/17 at 18:14 Heparin Sodium (Heparin (Flush)) 200 units PICC IV Last administered on 22:00; Start 04/07/17 at 06:00; Stop 05/07/17 at 05:59 Home Med (Med Rec Complete!) ASDIRECTED XX ; Start 03/30/17 at 13:30; Stop at 13:30; Status DC Insulin Human Lispro (HumaLOG INSULIN) See Protocol Table Q6H SC Last administered on 04/07/17 18:46; Start 04/07/17 at 18:00; Stop 04/08/17 at 14:00 ; Status DC Insulin Human Lispro (HumaLOG INSULIN) See Protocol Table Q6H SC Last administered on 04/09/17 06:12; Start 04/08/17 at 18:00; Stop 04/09/17 at 14:00 Insulin Human Lispro (HumaLOG INSULIN) See Protocol Table Q6H SC ; Start at 18:00; Stop 04/10/17 at 12:01 Ketorolac Tromethamine (ToRADol) 15 mg Q6H PRN IV PAIN Last administered on 06:14; Start 04/05/17 at 07:45; Stop 04/10/17 at 07:44 Ketorolac Tromethamine (ToRADol) 15 mg Q6HP PRN IV MODERATE PAIN (PS 5-7) Last administered on 04/04/17 18:17; Start 03/30/17 at 22:00; Stop 04/04/17 at 21:59; Status DC Lactated Ringer's 1,000 ml @ 80 mls/hr [id number] IV Last administered on 20:08; Start 03/30/17 at 22:00; Stop 04/04/17 at 09:00; Status DC Lactated Ringer's 1,000 ml @ 100 mls/hr Q10H IV ; Start 03/30/17 at 21:45; Stop 03/30/17 at 22:45; Status DC Lactated Ringer's 1,000 ml @ 125 mls/hr Q8H IV Last administered on 03/30/17 16:29; Start 03/30/17 at 15:31; Stop 03/30/17 at 21:48; Status DC Morphine Sulfate (Morphine Sulfate Inj) 2 mg Q2HP PRN IV MODERATE/SEVERE PAIN ( PS 5-10); Start 03/30/17 at 22:00; Stop 04/06/17 at 08:20; Status DC Multivitamins 10 ml/Chromium/ Copper/Manganese/ Seleni/Zn 1 ml/ Amino Ac/ Electrol/ Dextrose/Calcium 2,011 ml @ 60 mls/hr 1T@18 IV Last administered on 04/06/17 18:30; Start 04/06/17 at 18:00; Stop 04/07/17 at 17:59; Status DC Ondansetron HCl (ZOFRAN INJection) 4 mg Q4HP PRN IV NAUSEA OR VOMITING; Start 03/30/17 at 21:45; Stop 03/30/17 at 22:45; Status DC Ondansetron HCl (ZOFRAN INJection) 4 mg Q6HP PRN IV NAUSEA OR VOMITING Last administered on 04/04/17 02:11; Start 03/30/17 at 22:00; Stop 04/29/17 at 21:59 Phenol (Chloraseptic (Cepacol)) 1 spray Q2HP PRN MT SORE THROAT Last administered on 04/03/17 18:38; Start 04/03/17 at 11:00; Stop 05/03/17 at 10:59 Piperacillin Sod/ Tazobactam Sod 3.375 gm/Dextrose 50 ml @ 50 mls/hr Q6H IV Last administered on 04/04/17 06:14; Start 03/30/17 at 19:00; Stop 04/04/17 at 09: 00; Status DC Potassium Chloride 10 meq/ IV Miscellaneous Supplies 100 ml @ 100 mls/hr Q2H IV Last administered on 04/08/17 20:45; Start 04/08/17 at 14:00; Stop at 20:59; Status DC Sodium Chloride 1,000 ml @ 100 mls/hr Q10H IV Last administered on 03/30/17 11 :43; Start 03/30/17 at 11:43; Stop 03/30/17 at 15:41; Status DC Sodium Chloride (Saline Lock Flush) 10 ML PICC IV Last administered on 22:00; Start 04/07/17 at 06:00; Stop 05/07/17 at 05:59 Sodium Chloride (Saline Lock Flush) 10ML ASDIRECTED PRN IV SEE LABEL COMMENTS Last administered on 04/09/17 06:15; Start 04/06/17 at 18:15; Stop 05/06/17 at 18:14 Allergies Coded Allergies: No Known Drug Allergy (Unverified Allergy, Unknown, 02/26/13) Objective Physical Examination Examination GENERAL APPEARANCE:[Patient seen, laying in bed, awake, alert, and oriented. Comfortable, in no acute distress]. SKIN: [Warm and moist]. HEENT: [Normocephalic, atraumatic. [place] palpebral conjunctiva, anicteric sclerae. Lips and mucosa appear moist]. NECK: [Supple, no thyromegaly. No obvious jugular venous distention]. LUNGS: [Clear to auscultation bilaterally. No wheezing appreciated]. HEART: [No chest wall abnormalities. Regular rate and rhythm with no murmurs appreciated]. ABDOMEN: Abdomen is mild round, soft, still distended, tympanitic to percussion. Mild rlq tenderness on palpation. no rebound. left sided drain - light pink serosanguenous fluid, minimal]. EXTREMITIES: [Extremities have no deformities. No edema identified]. Vital Signs Vital Signs Date Time Temp Pulse Resp B/P (MAP) Pulse Ox O2 Delivery O2 Flow Rate FiO2 04/09/17 10:00 Room Air 04/09/17 06:00 98.9 77 18 102/54 (70) 98 I&Os I&O- Last 24 Hours up to 6 AM 04/09/17 06:00 Intake Total 2510 ml Output Total 3160 ml Balance -650 ml Laboratory Data Labs 24H Laboratory Tests 2 04/08/17 17:32: Bedside Glucose (Misc Panel) 101 04/08/17 23:58: Bedside Glucose (Misc Panel) 95 04/09/17 06:04: Bedside Glucose (Misc Panel) 102 04/09/17 10:20: Anion Gap 7L, Glomerular Filtration Rate > 60.0, Blood Urea Nitrogen 14, Creatinine 0.56, Sodium Level 143, Potassium Level 4.2#, Chloride Level 108H, Carbon Dioxide Level 28, Calcium Level 8.0L CBC/BMP Laboratory Tests 04/09/17 10:20 Calcium Level 8.0 L Microbiology Microbiology 04/07/17 Gram Stain - Final, Complete 04/07/17 Abscess Culture - Final, Complete 04/07/17 Anaerobic Culture - Final, Complete Impression Acute Appendicitis Post op ileus Encouraged patient to try more liquids orally. I think she is slowly improving. If she tolerates more food or shows more bowel function, will advance D/C drain. final microbiology shows sterile collection, not much draining D/C antibiotics Plan / VTE VTE Prophylaxis Ordered?: Yes SWETHA TORRES MD April 09, 2017 12:54
[2017-04-09 14:00] VITALS: BP 122/53
[2017-04-09] MEDS: SODIUM CHLORIDE 0.9% INJ 10 ML SYR IV SCH (17:34)
[2017-04-09] MEDS: ENOXAPARIN 40 MG/0.4 ML SYRINGE (J1650) SC SCH (17:35)
[2017-04-09 18:00] VITALS: BP 131/73
[2017-04-09] MEDS ORDERED: FAT EMULSION IV 20% 500 ML IV SCH (18:00)
[2017-04-09] MEDS ORDERED: AMINO AC/ELECTROLYTE/DEX/CALC 2,000 ML IV SCH (18:00)
[2017-04-09 22:00] VITALS: BP 118/57
[2017-04-10] MEDS: KETOROLAC 30 MG/ML VIAL (J1885) IV PRN (02:28)
[2017-04-10] MEDS: SODIUM CHLORIDE 0.9% INJ 10 ML SYR IV SCH ×2 (02:29→17:47)
[2017-04-10 06:00] VITALS: BP 98/58
[2017-04-10] MEDS: HumaLOG INSULIN (NovoLOG) PER UNIT SC SCH ×5 (06:00→23:56)
[2017-04-10 06:15] VITALS: BP 102/52
[2017-04-10] MEDS: ACETAMINOPHEN TAB 650MG DOSE (2X325MG) PO PRN ×2 (08:37→20:43)
[2017-04-10 10:00] VITALS: BP 113/55
[2017-04-10 14:00] VITALS: BP 100/49
[2017-04-10] MEDS: ENOXAPARIN 40 MG/0.4 ML SYRINGE (J1650) SC SCH (17:46)
[2017-04-10 18:00] VITALS: BP 98/52
[2017-04-10] MEDS ORDERED: AMINO AC/ELECTROLYTE/DEX/CALC 2,000 ML IV SCH (18:00)
[2017-04-10] MEDS ORDERED: FAT EMULSION IV 20% 500 ML IV SCH (18:00)
[2017-04-10 22:00] VITALS: BP 109/55
[2017-04-11 02:00] VITALS: BP 97/54
[2017-04-11] MEDS: SODIUM CHLORIDE 0.9% INJ 10 ML SYR IV SCH ×2 (05:15→17:41)
[2017-04-11 05:22] VITALS: BP 100/57
[2017-04-11] MEDS: HumaLOG INSULIN (NovoLOG) PER UNIT SC SCH ×2 (05:30→11:59)
[2017-04-11] MEDS: ACETAMINOPHEN TAB 650MG DOSE (2X325MG) PO PRN ×3 (05:49→22:20)
[2017-04-11 10:00] VITALS: BP 101/54
[2017-04-11 14:00] VITALS: BP 99/54
[2017-04-11] MEDS: ENOXAPARIN 40 MG/0.4 ML SYRINGE (J1650) SC SCH (17:42)
[2017-04-11 18:00] VITALS: BP 98/52
[2017-04-11] MEDS ORDERED: MULTIVITAMIN -ADULT INJECTION 10 ML, CR/CU/SE/MN/ZN INJ 1 ML in AMINO AC/ELECTROLYTE/DE... IV SCH (18:00)
[2017-04-11] MEDS ORDERED: FAT EMULSION IV 20% 500 ML IV SCH (18:00)
[2017-04-11 22:00] VITALS: BP 97/55
[2017-04-12 02:00] VITALS: BP 105/58
[2017-04-12] MEDS: SODIUM CHLORIDE 0.9% INJ 10 ML SYR IV SCH (05:42)
[2017-04-12 06:00] VITALS: BP 102/54
[2017-04-12] MEDS: ACETAMINOPHEN TAB 650MG DOSE (2X325MG) PO PRN (09:16)
[2017-04-12 10:00] VITALS: BP 114/55
[2017-04-12 10:13] LABS: BASO % 0.7 % (0.0-1.0); EOS # 0.4 K/mm3 (0.0-0.50); EOS % 5.5 % (0.0-3.0); LARGE UNSTAINED CELL # 0.1 K/mm3 (0.0-0.4); LARGE UNSTAINED CELL % 1.7 % (0.0-4.0); LYMPH # 1.7 K/mm3 (1.5-4.5); LYMPH % 21.3 % (24.0-44.0); MEAN CORPUSCULAR HEMOGLOBIN 31.1 pg (27.0-33.0); MEAN CORPUSCULAR HGB CONC 32.3 g/dl (32.0-36.5); MEAN CORPUSCULAR VOLUME 96.3 fl (80.0-96.0); MONO # 0.5 K/mm3 (0.0-0.8); MONO % 6.3 % (0.0-5.0); NEUTROPHILS # 4.7 K/mm3 (1.8-7.7); NEUTROPHILS % 64.5 % (36.0-66.0); PLATELET COUNT, AUTOMATED 498 k/mm3 (150-450); RED CELL DISTRIBUTION WIDTH 13.4 % (11.5-14.5); WHITE BLOOD COUNT 7.3 K/mm3 (4.0-10.0)
[2017-04-12 10:38] LABS: ALBUMIN 2.9 GM/DL (3.2-5.2); ALBUMIN/GLOBULIN RATIO 0.76 (1.00-1.93); ALKALINE PHOSPHATASE 89 U/L (45-117); ALT/SGPT 48 U/L (12-78); ANION GAP 7 MEQ/L (8-16); AST/SGOT 30 U/L (15-37); BILIRUBIN,TOTAL 0.2 MG/DL (0.2-1.0); BLOOD UREA NITROGEN 14 MG/DL (7-18); CALCIUM LEVEL 8.2 MG/DL (8.8-10.2); CARBON DIOXIDE LEVEL 31 MEQ/L (21-32); CHLORIDE LEVEL 102 MEQ/L (98-107); CREATININE FOR GFR 0.63 MG/DL (0.55-1.02); GLOMERULAR FILTRATION RATE > 60.0 (>45); GLUCOSE, FASTING 103 MG/DL (80-110); POTASSIUM SERUM 4.3 MEQ/L (3.5-5.1); SODIUM LEVEL 140 MEQ/L (136-145); TOTAL PROTEIN 6.7 GM/DL (6.4-8.2)
--- NOTE | 2017-04-20 06:17 | DSES ---
DATE OF ADMISSION: 03/30/2017 DATE OF DISCHARGE: 04/12/2017 ADMITTING DIAGNOSIS: Perforated appendicitis. HISTORY OF PRESENT ILLNESS The patient is a pleasant 61-year-old woman who presented to the emergency department with a one-day history of abdominal pain with some associated nausea and vomiting. A CT scan was obtained which was interpreted as being consistent with appendicitis. She had marked tenderness in the right lower quadrant. Laboratory studies showed a white count of 16,000 with 90% neutrophils. She was taken urgently to the operating room for appendectomy. At surgery, she was found to have a perforated gangrenous appendix. As the appendix was manipulated, there were some small particles of what appeared to be stool released from the sides of the appendix. The appendix was removed. Her abdomen was irrigated thoroughly to try to remove as much contamination as possible. She was continued on piperacillin tazobactam for antibiotic coverage. Because of the perforation, she was converted to an inpatient hospital stay. She was allowed to try some clear liquids. She had a white count that was 10,000, but still with a high neutrophil percentage on postoperative day one. This continued on postoperative day two. Her diet was advanced to a regular diet, though she complained of some abdominal cramps and some increased discomfort later on the day on 03/30. On 04/03, the covering physician felt that she was showing signs of an ileus and placed a nasogastric tube and made her nothing by mouth. She was treated with intravenous (IV) fluids. He had also started ertapenem in addition to the Zosyn. I elected on 04/04 to stop the Zosyn and continue with the ertapenem. She had undergone a CT scan over the weekend as well and this was reviewed but showed no abscess. She made some gradual progress with decrease of her abdominal discomfort. She developed some flatus and had some small loose bowel movements. Her bowel obstruction/ileus began to resolve. Because she had remained nothing by mouth for a prolonged period of time, a peripherally inserted central catheter (PICC) line was placed. She was started on total parenteral nutrition (TPN) on 04/06. A repeat CT scan showed no definite small bowel obstruction, but she was noted to have a small fluid collection low in the pelvis with a possible thin enhancing rim suggesting an abscess. Her white count was down to 7.8 with 70% neutrophils, and her bowel functions seem to be improving. By the eighth postoperative day, she remained distended. She also reported some discomfort with voiding. I elected therefore to see if radiology could drain her pelvic collection. A drain was placed on the 04/07 and approximately 55 mL of light yellow serous fluid was returned. The drain was placed, though it was felt that this was perhaps just residual fluid and not an abscess. A Gram stain showed no organisms and a few red cells. Her antibiotics were continued. Her abdomen remained somewhat distended and full, but not painful. Lovenox was utilized for deep venous thrombosis (DVT) prophylaxis. Her antibiotic was continued. The culture from the drained fluid showed no growth. She became more comfortable and tolerated her diet well. Her TPN was discontinued after she tolerated regular food well. She continued to make progress and was discharged home on 04/12/2017. FINAL DIAGNOSES: 1. Gangrenous appendicitis with perforation. 2. Peritonitis with prolonged ileus. PROCEDURES PERFORMED: 1. Laparoscopic appendectomy. 2. Placement of peripherally inserted central catheter (PICC) line with the administration of total parenteral nutrition. 3. CT-guided percutaneous drainage of pelvic fluid collection. DISPOSITION: The patient was discharged on 04/12/2017. She was to take a regular diet as tolerated. She could shower or bathe as desired. She was to leave her Steri-Strips in place to come off on their own. She was to followup in my office in the next week to 10 days. She had no routine medications that she was taking and was provided no prescriptions at her request. She could take [id number] pain medications as needed. She was to contact my office for worsening pain, fevers, chills, or nausea, vomiting.
== END 2017-04-12 16:09 | disposition home or self-care (01) | DRG 225 ==
LOC: EDBD 11:33 → EDSEX 11:33 → M ED 13:02 → M SDC 15:31 → M MSPAV 22:10 → M SDC 22:16 → M MSPAV 22:17
PROVIDERS: ADMIT Surgery; ATTEND Surgery
PROC: 0DTJ4ZZ Resection of Appendix, Percutaneous Endoscopic Approach (ICD-10-PCS; principal; 2017-03-30 13:39)
PROC: 02HV33Z Insertion of Infusion Device into Superior Vena Cava, Percutaneous Approach (ICD-10-PCS; 2017-04-06)
PROC: 0U9 Female Reproductive System, Drainage (ICD-10-PCS; 2017-04-07)
DX: K35.2 Acute appendicitis with generalized peritonitis (principal); K56.7 Ileus, unspecified; Z98.51 Tubal ligation status

== ENCOUNTER 2017-04-29 14:04 | Emergency (ER) | payer OTHER ==
[~2017-04-29] VITALS: Ht 154.9 cm; Wt 46.3 kg
[2017-04-29] MEDS ORDERED: KETOROLAC 30 MG/ML VIAL (J1885) IV ONE (15:00)
[2017-04-29] MEDS ORDERED: GASTROGRAFIN SOLUTION 30ML (Q9963) As Ordered ONE (15:28)
[2017-04-29 15:40] LABS: BASO # 0.1 K/mm3 (0.0-0.2); BASO % 0.7 % (0.0-1.0); EOS # 0.4 K/mm3 (0.0-0.50); EOS % 5.3 % (0.0-3.0); LARGE UNSTAINED CELL # 0.1 K/mm3 (0.0-0.4); LARGE UNSTAINED CELL % 1.4 % (0.0-4.0); LYMPH # 1.9 K/mm3 (1.5-4.5); LYMPH % 22.3 % (24.0-44.0); MEAN CORPUSCULAR HEMOGLOBIN 30.9 pg (27.0-33.0); MEAN CORPUSCULAR HGB CONC 32.7 g/dl (32.0-36.5); MEAN CORPUSCULAR VOLUME 94.6 fl (80.0-96.0); MONO # 0.4 K/mm3 (0.0-0.8); MONO % 4.9 % (0.0-5.0); NEUTROPHILS # 5.2 K/mm3 (1.8-7.7); NEUTROPHILS % 65.3 % (36.0-66.0); PLATELET COUNT, AUTOMATED 326 k/mm3 (150-450); RED CELL DISTRIBUTION WIDTH 13.6 % (11.5-14.5)
[2017-04-29] MEDS ORDERED: GASTROGRAFIN SOLUTION 30ML (Q9963) PO ONE ×2 (15:45→16:15)
[2017-04-29 15:53] LABS: ANION GAP 8 MEQ/L (8-16); BLOOD UREA NITROGEN 11 MG/DL (7-18); CARBON DIOXIDE LEVEL 27 MEQ/L (21-32); CHLORIDE LEVEL 105 MEQ/L (98-107); CREATININE FOR GFR 0.74 MG/DL (0.55-1.02); GLOMERULAR FILTRATION RATE > 60.0 (>45); GLUCOSE, FASTING 87 MG/DL (80-110); POTASSIUM SERUM 3.7 MEQ/L (3.5-5.1); SODIUM LEVEL 140 MEQ/L (136-145)
[2017-04-29 16:29] LABS: ERYTHROCYTE SEDIMENTATION RATE 44 mm/hr (0-30)
[2017-04-29] MEDS ORDERED: ISOVUE-370 76% 100ML VIAL (Q9967) As Ordered ONE (17:32)
--- NOTE | 2017-04-29 18:42 | REP ---
CT ABDOMEN AND PELVIS WITH CONTRAST: HISTORY: Abdominal pain. CONTRAST: Isovue-370 75 mL. COMPARISON: 04/06/2017. Several cysts are present in the liver. The largest measures 2.1 cm in width. These appear unchanged compared to the previous study. The body and tail of the pancreas appear prominent. The pancreas is normal in density. The spleen, adrenal glands and kidneys are normal in appearance. There is no adenopathy or free fluid. The visualized lungs are clear. IMPRESSION: 1. There are several liver cysts unchanged compared to the previous study. 2. There is mild prominence of the body and tail of the pancreas. A mass can not be excluded. MR of the abdomen may be helpful for further evaluation if clinically indicated. CT PELVIS: The urinary bladder and uterus are normal in appearance. There in no mass adenopathy or free fluid. Minimal degenerative change is present in the spine. IMPRESSION: Normal CT pelvis. Signed by Sg Jones MD 04/29/2017 06:58 P
[2017-04-29] MEDS ORDERED: KETOROLAC TROMETHAMINE 10 MG TAB PO ONE (20:15)
[2017-04-29] MEDS ORDERED: COLA100C3 PO (20:17)
[2017-04-29] MEDS ORDERED: KETO10TAB PO (20:17)
[2017-04-29 20:35] VITALS: BP 116/62
== END 2017-04-29 20:37 | disposition home or self-care (01) ==
LOC: M ED 15:06
DX: R10.84 Generalized abdominal pain (principal)

== ENCOUNTER → 2019-01-22 | Outpatient (REF) | payer OTHER ==
[~2019-01-22] MED LIST: COLA100C5 PO; KETO10TAB PO
== END ==
LOC: M SFHCWAGY 11:44
PROVIDERS: ATTEND Nurse Practitioner Women's Health
DX: R87.610 Atypical squamous cells of undetermined significance on cytologic smear of cervix (ASC-US) (principal); R87.810 Cervical high risk human papillomavirus (HPV) DNA test positive

== ENCOUNTER → 2019-02-15 | Outpatient (REF) | payer OTHER | LOC: M LAB REF 17:44 | PROVIDERS: ATTEND Obstetrics & Gynecology | DX: N87.1 Moderate cervical dysplasia (principal) ==

== ENCOUNTER → 2020-02-05 | Outpatient (REF) | payer OTHER ==
[2020-02-05 13:43] LABS: APPEARANCE, URINE CLEAR (CLEAR); BACTERIA, URINE AUTO NEGATIVE (NEGATIVE); BILIRUBIN, URINE AUTO NEGATIVE (NEGATIVE); BLOOD, URINE BLOOD 1+ (NEGATIVE); COLOR, URINE STRAW (YELLOW); GLUCOSE, URINE (UA) AUTO NEGATIVE (NEGATIVE); KETONE, URINE AUTO NEGATIVE (NEGATIVE); LEUKOCYTE ESTERASE, URINE AUTO NEGATIVE (NEGATIVE); MUCUS, URINE SMALL (NEGATIVE); NITRITE, URINE AUTO NEGATIVE (NEGATIVE); PROTEIN, URINE AUTO NEGATIVE (NEGATIVE); RBC, URINE AUTO 1 /HPF (0-3); SPECIFIC GRAVITY URINE AUTO 1.005 (1.002-1.035); SQUAMOUS EPITHELIAL CELL UR AU 0 /HPF (0-6); UROBILINOGEN, URINE AUTO 0.2 mg/dL (0.0-2.0); WBC, URINE AUTO 0 /HPF (0-3)
== END ==
LOC: M SMT 13:03
PROVIDERS: ATTEND Nurse Practitioner Women's Health
DX: R31.29 Other microscopic hematuria (principal)

== ENCOUNTER 2021-08-03 09:01 | Emergency (ER) | payer MEDICARE, MEDICAID ==
[~2021-08-03] VITALS: Ht 154.9 cm; Wt 51.1 kg
[2021-08-03] MEDS ORDERED: BAYECHW PO (09:17)
[2021-08-03] MEDS ORDERED: diphenhydrAMINE 50MG/ML VIAL (J1200) IV STA (11:16)
[2021-08-03] MEDS ORDERED: NS 1,000 ML IV ONE (11:20)
[2021-08-03] MEDS ORDERED: METOCLOPRAMIDE INJ 10MG/2ML VIAL (J2765 PER 1) IV ONE (11:20)
--- NOTE | 2021-08-03 11:46 | REP ---
INDICATION: Headache. COMPARISON: None. TECHNIQUE: Contiguous axial projection images were obtained through the head and supplemented by coronal reconstructions. FINDINGS: There is no evidence of acute intracranial hemorrhage or infarction. There are no abnormal intracranial masses or mass effects. 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 The skull base and calvarium are otherwise normal. The visualized intraorbital and extracranial contents are normal. IMPRESSION: 1. 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 2. No evidence of acute intracranial pathology. <Electronically signed by Matteo Stone > 08/03/21 [id number]
[2021-08-03] MEDS ORDERED: KETOROLAC 30 MG/ML 1ML VIAL IV ONE (12:00)
[2021-08-03 12:44] VITALS: BP 139/64
== END 2021-08-03 12:44 | disposition home or self-care (01) ==
LOC: M ED 09:01
DX: R51.9 Headache, unspecified (principal); Z79.82 Long term (current) use of aspirin
CPT/HCPCS: 70450; 96361; 96374; 96375; 99284; J1200; J1885; J2765

== ENCOUNTER → 2022-03-25 | Outpatient (CLI) | payer MEDICARE, MEDICAID ==
[~2022-03-25] MED LIST changes: +BAYECHW PO
== END ==
LOC: M WHC 11:23
PROVIDERS: ATTEND Nurse Practitioner Family
DX: Z12.31 Encounter for screening mammogram for malignant neoplasm of breast (principal)

== ENCOUNTER → 2023-02-10 | Outpatient (CLI) | payer MEDICARE, MEDICAID ==
[~2023-02-10] MED LIST changes: +ASPI-255 PO
== END ==
LOC: M LABSMTC 11:29
PROVIDERS: ATTEND Anesthesiology
DX: Z01.818 Encounter for other preprocedural examination (principal); Z11.52 Encounter for screening for COVID-19

== ENCOUNTER 2023-02-15 07:27 | Day surgery (SDC) | payer MEDICARE, MEDICAID ==
[~2023-02-15] VITALS: Ht 156.2 cm; Wt 51.3 kg
[~2023-02-15 07:27] MED LIST changes: +NS 1,000 ML IV ONE
[2023-02-15] MEDS ORDERED: fentaNYL 100 MCG/2 ML INJECTION As Ordered ONE (08:37)
[2023-02-15] MEDS ORDERED: propofoL 200 MG/20 ML VIAL As Ordered ONE (08:37)
[2023-02-15] MEDS ORDERED: LIDOCAINE 2% 100MG/5ML SDV (FOR ANES.) As Ordered ONE (08:37)
[2023-02-15] MEDS ORDERED: ePHEDrine SULFATE 25 MG/5 ML(5MG/ML) SYRINGE As Ordered ONE (08:54)
[2023-02-15 09:26] VITALS: BP 119/56
== END 2023-02-15 10:11 | disposition home or self-care (01) ==
LOC: M OPP 07:27
PROVIDERS: ATTEND Internal Medicine Gastroenterology
DX: D12.6 Benign neoplasm of colon, unspecified (principal); K57.30 Diverticulosis of large intestine without perforation or abscess without bleeding; K64.4 Residual hemorrhoidal skin tags; K64.8 Other hemorrhoids; Z80.0 Family history of malignant neoplasm of digestive organs; K44.9 Diaphragmatic hernia without obstruction or gangrene; K29.70 Gastritis, unspecified, without bleeding; Z79.82 Long term (current) use of aspirin; Z87.891 Personal history of nicotine dependence; Z80.1 Family history of malignant neoplasm of trachea, bronchus and lung; Z80.3 Family history of malignant neoplasm of breast
CPT/HCPCS: 43239; 45380; 88305; J3010

== ENCOUNTER → 2023-04-27 | Outpatient (CLI) | payer MEDICARE, MEDICAID ==
[~2023-04-27] MED LIST changes: -NS 1,000 ML IV ONE
== END ==
LOC: M WHC 08:15
PROVIDERS: ATTEND Nurse Practitioner Family
DX: Z12.31 Encounter for screening mammogram for malignant neoplasm of breast (principal)

== ENCOUNTER → 2024-02-01 | Outpatient (CLI) | payer MEDICARE, MEDICAID | LOC: M RAD 11:48 | PROVIDERS: ATTEND Nurse Practitioner Family | DX: R59.9 Enlarged lymph nodes, unspecified (principal) ==

== ENCOUNTER → 2024-05-21 | Outpatient (CLI) | payer MEDICARE, MEDICAID | LOC: M RAD 12:50 | PROVIDERS: ATTEND Nurse Practitioner Family | DX: R59.0 Localized enlarged lymph nodes (principal) ==

== ENCOUNTER → 2024-05-28 | Outpatient (CLI) | payer MEDICARE, MEDICAID | LOC: M WHC 11:03 | PROVIDERS: ATTEND Nurse Practitioner Family | DX: Z12.31 Encounter for screening mammogram for malignant neoplasm of breast (principal) ==

== ENCOUNTER → 2025-10-04 | Outpatient (CLI) | payer MEDICARE, MEDICAID | LOC: M RAD 10:13 | PROVIDERS: ATTEND Otolaryngology | DX: R22.1 Localized swelling, mass and lump, neck (principal) ==